=== PATIENT | female | born 1995 | race Caucasian/White ===

== ENCOUNTER 2017-06-09 23:58 | Emergency (ER) | payer OTHER ==
[~2017-06-09] VITALS: Ht 157.5 cm; Wt 74.8 kg
[~2017-06-09 23:58] MED LIST: ABILIFY15 MG; AFRIN15 ML NS; ALBUTEROL S5 MG/1 ML INH; ATROVENT HFA14 GM INH; BIRTH CONTROL PILL; CLARITIN10 M2 PO; DUONEB 2.5-0.5 M3 ML INH; KEFLEX500 M1 PO; LAMOTRIGINE PO; PREDNISONE50 MG PO; PROAIR HFA8.5 GM PO; SYNTHROID25 MC1 PO; TRILEPTAL150 MG PO
[2017-06-10 01:38] LABS: URINE BILIRUBIN NEGATIVE (Negative); URINE BLOOD NEGATIVE (Negative); URINE CLARITY CLEAR; URINE COLOR YELLOW; URINE GLUCOSE-RANDOM NEGATIVE (Negative); URINE KETONES NEGATIVE (Negative); URINE LEUKOCYTES-REFLEX NEGATIVE (Negative); URINE NITRITE-REFLEX NEGATIVE (Negative); URINE PROTEIN NEGATIVE (Negative); URINE UROBILINOGEN 0.2 E.U./dl (0.2-1.0)
[2017-06-10 02:34] VITALS: BP 117/81
[2017-06-10] MEDS ORDERED: DUONEB 2.5-0.5 M3 ML INH (02:38)
[2017-09-13] MEDS ORDERED: CITRATE OF MAG296 M1 PO
== END 2017-06-10 02:36 | disposition home or self-care (01) ==
LOC: M.ERS 23:58
PROVIDERS: Personal Emergency Response Attendant
DX: J45.901 Unspecified asthma with (acute) exacerbation (principal); E03.9 Hypothyroidism, unspecified

== ENCOUNTER 2017-07-20 00:16 | Emergency (ER) | payer OTHER ==
[~2017-07-20] VITALS: Ht 157.5 cm; Wt 74.8 kg
[2017-07-20] MEDS ORDERED: PREDNISONE50 MG PO (01:29)
[2017-07-20 01:35] VITALS: BP 116/56
[2017-09-13] MEDS ORDERED: CITRATE OF MAG296 M1 PO
== END 2017-07-20 01:36 | disposition home or self-care (01) ==
LOC: M.ERS 00:16
DX: J45.901 Unspecified asthma with (acute) exacerbation (principal); E03.9 Hypothyroidism, unspecified; Z90.89 Acquired absence of other organs; Z88.0 Allergy status to penicillin

== ENCOUNTER 2017-09-07 22:48 | Emergency (ER) | payer OTHER ==
[~2017-09-07] VITALS: Ht 160 cm; Wt 74.8 kg
[2017-09-07] MEDS ORDERED: SPIRIVA18 MCG INH (23:02)
[2017-09-07] MEDS ORDERED: TRINESSA1 EACH PO (23:02)
[2017-09-07] MEDS ORDERED: VALIUM5 MG PO (23:03)
[2017-09-07 23:14] LABS: URINE BILIRUBIN NEGATIVE (Negative); URINE BLOOD NEGATIVE (Negative); URINE CLARITY SL CLOUDY; URINE COLOR YELLOW; URINE GLUCOSE-RANDOM NEGATIVE (Negative); URINE KETONES NEGATIVE (Negative); URINE LEUKOCYTES-REFLEX TRACE (Negative); URINE NITRITE-REFLEX NEGATIVE (Negative); URINE PROTEIN NEGATIVE (Negative); URINE UROBILINOGEN 0.2 E.U./dl (0.2-1.0)
[2017-09-07 23:29] LABS: ABSOLUTE BASOPHILS 0.1 thou/uL (0.0-0.2); ABSOLUTE EOSINOPHILS 0.4 thou/uL (0.0-0.7); ABSOLUTE LYMPHOCYTES 2.4 thou/uL (0.8-5.3); ABSOLUTE MONOCYTES 0.6 thou/uL (0.0-1.2); ABSOLUTE NEUTROPHILS 3.8 thou/uL (1.6-8.1); BASOPHILS 1.3 %; HEMATOCRIT 36.8 % (37.0-47.0); HEMOGLOBIN 11.6 gm/dL (12.0-15.0); LYMPHOCYTES 33.3 %; MCH 23.8 pg (26.0-34.0); MCHC 31.6 g/dL (28.0-37.0); MCV 75.4 fL (80.0-100.0); MONOCYTES 8.1 %; MPV 8.4 fl. (7.2-11.1); NUCLEATED RBCS 0 /100WBC; PLATELET COUNT* 356 thou/uL (150-400); POLYS 52.3 %; RBC 4.88 mil/uL (4.20-5.00); RDW-CV 17.1 % (10.5-14.5); WBC 7.2 thou/uL (4.0-11.0)
[2017-09-07 23:31] LABS: AMORPHOUS URATES Moderate /LPF (None Seen); BACTERIA-REFLEX >30 Many /HPF (None Seen); CASTS None Seen /LPF (None Seen); MUCUS 4-6 Moderate strn/LPF (None Seen); SQUAMOUS 4-10 Moderate /LPF (0-3); URINE RBC 0-2 Rare /HPF (0-2); URINE WBC-REFLEX 6-15 Few /HPF (0-5)
[2017-09-07 23:41] LABS: ANION GAP 8 mmol/L (7-16); BUN 8 mg/dL (7-18); CALCIUM 8.7 mg/dL (8.5-10.1); CHLORIDE 105 mmol/L (98-107); CO2 27 mmol/L (21-32); CREATININE 0.7 mg/dL (0.6-1.3); GLUCOSE 97 mg/dL (70-99); POTASSIUM 3.8 mmol/L (3.5-5.1); SODIUM 140 mmol/L (136-145)
[2017-09-07 23:49] LABS: ALBUMIN 3.5 g/dL (3.4-5.0); ALKALINE PHOSPHATASE 96 U/L (46-116); SGOT 12 U/L (15-37); SGPT 18 U/L (30-65); TOTAL PROTEIN 7.3 g/dL (6.4-8.2)
[2017-09-07 23:51] LABS: TOTAL BILIRUBIN < 0.1 mg/dL (<0.1-1.0)
[2017-09-08] MEDS ORDERED: PHENERGAN 25 MG25 M1 PO (03:38)
[2017-09-08] MEDS ORDERED: PEPCID20 MG PO (03:38)
[2017-09-08] MEDS ORDERED: MEDROLDOSEPACK PO (03:38)
[2017-09-08] MEDS ORDERED: HYDROCODON-ACE1 EAC7 PO (03:38)
[2017-09-08 03:47] VITALS: BP 105/58
[2017-09-13] MEDS ORDERED: CITRATE OF MAG296 M1 PO
== END 2017-09-08 03:49 | disposition home or self-care (01) ==
LOC: M.ERS 22:48
PROVIDERS: Personal Emergency Response Attendant
DX: K29.80 Duodenitis without bleeding (principal); J45.909 Unspecified asthma, uncomplicated; E03.9 Hypothyroidism, unspecified; Z88.0 Allergy status to penicillin

== ENCOUNTER 2017-09-09 23:34 | Inpatient (IN) | payer OTHER ==
[~2017-09-09] VITALS: Ht 160 cm; Wt 90.7 kg
--- NOTE | ~2017-09-09 | PROC ---
[address] [address] PROCEDURE REPORT Name: BRI BELTRAN Room: [address]#: [id number] Admission: 09/10/17 Attend Phys: Ben Wiseman, Discharge: 09/12/17 Date of : 89 Report #: [id number] THIS REPORT FOR: //name// For GI report, please see the Provation report in [employer] content. By: [id number] Records Staff AMENA /AXEL
[~2017-09-09 23:34] MED LIST changes: +HYDROCODON-ACE1 EAC7 PO; +MEDROLDOSEPACK PO; +PEPCID20 MG PO; +PHENERGAN 25 MG25 M1 PO; +SPIRIVA18 MCG INH; +TRINESSA1 EACH PO; +VALIUM5 MG PO
[2017-09-09 23:40] VITALS: BP 105/54
[2017-09-10 00:11] LABS: URINE BILIRUBIN NEGATIVE (Negative); URINE BLOOD NEGATIVE (Negative); URINE CLARITY CLEAR; URINE COLOR YELLOW; URINE GLUCOSE-RANDOM NEGATIVE (Negative); URINE KETONES NEGATIVE (Negative); URINE LEUKOCYTES-REFLEX NEGATIVE (Negative); URINE NITRITE-REFLEX NEGATIVE (Negative); URINE PROTEIN NEGATIVE (Negative); URINE SPECIFIC GRAVITY 1.025 (1.005-1.030)
[2017-09-10 00:43] LABS: ABSOLUTE BASOPHILS 0.1 thou/uL (0.0-0.2); ABSOLUTE EOSINOPHILS 0.3 thou/uL (0.0-0.7); ABSOLUTE LYMPHOCYTES 1.9 thou/uL (0.8-5.3); ABSOLUTE MONOCYTES 0.7 thou/uL (0.0-1.2); ABSOLUTE NEUTROPHILS 4.9 thou/uL (1.6-8.1); BASOPHILS 1.3 %; HEMATOCRIT 34.7 % (37.0-47.0); LYMPHOCYTES 23.8 %; MCH 23.8 pg (26.0-34.0); MCHC 31.5 g/dL (28.0-37.0); MCV 75.6 fL (80.0-100.0); MONOCYTES 8.7 %; MPV 8.4 fl. (7.2-11.1); NUCLEATED RBCS 0 /100WBC; PLATELET COUNT* 329 thou/uL (150-400); POLYS 62.2 %; RDW-CV 17.4 % (10.5-14.5); WBC 7.9 thou/uL (4.0-11.0)
[2017-09-10 00:50] LABS: CALCIUM 8.3 mg/dL (8.5-10.1); CREATININE 0.7 mg/dL (0.6-1.3); POTASSIUM 3.8 mmol/L (3.5-5.1)
[2017-09-10 00:54] LABS: ALBUMIN 3.5 g/dL (3.4-5.0); TOTAL BILIRUBIN 0.2 mg/dL (<0.1-1.0)
[2017-09-10 03:00] VITALS: BP 103/62; BP 98/54
[2017-09-10 09:30] VITALS: BP 94/54
[2017-09-10 15:45] VITALS: BP 101/66
[2017-09-10 20:00] VITALS: BP 110/62
[2017-09-11 09:00] VITALS: BP 88/56
[2017-09-11 15:49] VITALS: BP 95/55
--- NOTE | 2017-09-11 17:01 | CON ---
[address] [address] CONSULTATION Name: FLIPOmkarJOHNBRI L Room: [address] [place] .R.#: [id number] Admission: 09/10/17 Attend Phys: Ben Wiseman, Discharge: Date of : 89 Report #: [id number] THIS REPORT FOR: //name// CC: KVNG Wiseman DATE OF SERVICE: 09/10/2017 REQUESTING PHYSICIAN: Dr. Ben Wiseman. REASON FOR CONSULT: Nausea, diarrhea and abdominal pain. HISTORY OF PRESENT ILLNESS: This is a 22-year-old female with history of hypothyroidism for which she has been on thyroid replacement therapy for the past 5 years. She also has depression and anxiety, but otherwise in normal health. She reports that for the past several days, she has had right upper quadrant abdominal pain, diarrhea and nausea. She denies any vomiting. The patient reports that the pain usually get worse with meals. She denies any hematochezia, melena or hematemesis. Since admission, she has had some blood work, which reveals normal white count, but mildly anemic with hemoglobin of 11. Liver function tests all within normal limits. There is evidence of urinary tract infection. She also has had CT of abdomen and pelvis, which shows normal liver, gallbladder, spleen and pancreas. There is no evidence of bowel obstruction, ascites or appendicitis. ASSESSMENT AND PLAN: The patient with nausea and right upper quadrant pain, which worsened with meals and diarrhea, which has been going on for the past several days. This may be gastroenteritis. I will obtain a HIDA scan to assure that the patient does not have any gallbladder dyskinesia. If her symptoms persist and her HIDA is negative, we will consider endoscopic evaluation. <ELECTRONICALLY SIGNED> By: Nuria Nielson MD 09/11/17 1701 [id number] [id number] Nielson MD /nt
[2017-09-11 18:06] LABS: AMP/METHAMP Negative (Negative); BARBITURATES Negative (Negative); BENZODIAZEPINES Negative (Negative); COCAINE Negative (Negative); METHADONE Negative (Negative); OPIATES Negative (Negative); PCP Negative (Negative); THC Negative (Negative)
[2017-09-11 20:45] VITALS: BP 99/60
[2017-09-11 23:55] VITALS: BP 100/63
[2017-09-12 07:55] VITALS: BP 90/55
[2017-09-12 11:30] VITALS: BP 102/65; BP 90/55
[2017-09-12 15:03] VITALS: BP 102/65
[2017-09-12 15:32] VITALS: BP 121/64
[2017-09-12] MEDS ORDERED: LAMICTAL100 MG PO (15:49)
[2017-09-12 16:01] VITALS: BP 102/65
[2017-09-12] MEDS ORDERED: OMEPRAZOLE40 MG PO (16:08)
[2017-09-12] MEDS ORDERED: BENTYL 20 MG TA20 M1 PO (16:08)
[2017-09-13] MEDS ORDERED: CITRATE OF MAG296 M1 PO
== END 2017-09-12 18:10 | disposition home or self-care (01) | DRG 392 ==
LOC: M.ERS 23:34 → M.ORTHSURG 09-10 01:47 → M.TBA-ER 09-10 01:47 → M.ORTHSURG 09-10 02:32
PROVIDERS: Emergency Medicine; Internal Medicine; ADMIT Family Medicine
PROC: 0DJ08ZZ Inspection of Upper Intestinal Tract, Via Natural or Artificial Opening Endoscopic (ICD-10-PCS; principal; 2017-09-12)
DX: K29.00 Acute gastritis without bleeding (principal); F32.9 Major depressive disorder, single episode, unspecified; F41.9 Anxiety disorder, unspecified; J30.9 Allergic rhinitis, unspecified; K44.9 Diaphragmatic hernia without obstruction or gangrene; G89.29 Other chronic pain; E03.9 Hypothyroidism, unspecified; Z79.899 Other long term (current) drug therapy; Z88.0 Allergy status to penicillin

== ENCOUNTER 2017-09-13 22:21 | Emergency (ER) | payer OTHER ==
[~2017-09-13] VITALS: Ht 160 cm; Wt 74.8 kg
[~2017-09-13 22:21] MED LIST changes: +BENTYL 20 MG TA20 M1 PO; +CITRATE OF MAG296 M1 PO; +LAMICTAL100 MG PO; +OMEPRAZOLE40 MG PO
[2017-09-13 22:48] LABS: ABSOLUTE BASOPHILS 0.1 thou/uL (0.0-0.2); ABSOLUTE EOSINOPHILS 0.2 thou/uL (0.0-0.7); ABSOLUTE LYMPHOCYTES 1.9 thou/uL (0.8-5.3); ABSOLUTE MONOCYTES 0.7 thou/uL (0.0-1.2); ABSOLUTE NEUTROPHILS 5.6 thou/uL (1.6-8.1); BASOPHILS 0.8 %; EOSINOPHILS 2.4 %; HEMATOCRIT 37.2 % (37.0-47.0); HEMOGLOBIN 11.7 gm/dL (12.0-15.0); LYMPHOCYTES 22.5 %; MCH 23.6 pg (26.0-34.0); MCHC 31.4 g/dL (28.0-37.0); MONOCYTES 8.1 %; MPV 8.5 fl. (7.2-11.1); NUCLEATED RBCS 0 /100WBC; PLATELET COUNT* 341 thou/uL (150-400); POLYS 66.2 %; RBC 4.96 mil/uL (4.20-5.00); RDW-CV 16.9 % (10.5-14.5); WBC 8.4 thou/uL (4.0-11.0)
[2017-09-13 22:53] LABS: AMP/METHAMP Negative (Negative); BARBITURATES Negative (Negative); BENZODIAZEPINES Negative (Negative); COCAINE Negative (Negative); METHADONE Negative (Negative); OPIATES Negative (Negative); PCP Negative (Negative); THC Negative (Negative)
[2017-09-13 22:59] LABS: CALCIUM 8.7 mg/dL (8.5-10.1); CREATININE 0.7 mg/dL (0.6-1.3); POTASSIUM 3.8 mmol/L (3.5-5.1)
[2017-09-13 23:03] LABS: ALBUMIN 3.7 g/dL (3.4-5.0); TOTAL BILIRUBIN 0.3 mg/dL (<0.1-1.0); TOTAL PROTEIN 7.5 g/dL (6.4-8.2)
[2017-09-14] MEDS ORDERED: ZOFRAN ODT4 MG PO (00:02)
[2017-09-14 00:14] VITALS: BP 106/56
[2017-09-14 00:22] LABS: URINE BILIRUBIN NEGATIVE (Negative); URINE BLOOD NEGATIVE (Negative); URINE CLARITY CLEAR; URINE COLOR YELLOW; URINE GLUCOSE-RANDOM NEGATIVE (Negative); URINE KETONES NEGATIVE (Negative); URINE LEUKOCYTES-REFLEX NEGATIVE (Negative); URINE NITRITE-REFLEX NEGATIVE (Negative); URINE PROTEIN NEGATIVE (Negative)
== END 2017-09-14 00:30 | disposition home or self-care (01) ==
LOC: M.ERS 22:21
PROVIDERS: Nurse Practitioner Family
DX: R10.11 Right upper quadrant pain (principal); J45.909 Unspecified asthma, uncomplicated; E03.9 Hypothyroidism, unspecified; Z88.0 Allergy status to penicillin

== ENCOUNTER 2017-10-15 21:29 | Emergency (ER) | payer OTHER ==
[~2017-10-15] VITALS: Ht 160 cm; Wt 92.1 kg
[~2017-10-15 21:29] MED LIST changes: +ZOFRAN ODT4 MG PO
[2017-10-15 22:27] VITALS: BP 106/73
== END 2017-10-15 22:27 | disposition home or self-care (01) ==
LOC: M.ERS 21:29
DX: M25.551 Pain in right hip (principal); J45.909 Unspecified asthma, uncomplicated; E03.9 Hypothyroidism, unspecified; Z88.0 Allergy status to penicillin

== ENCOUNTER 2017-12-10 21:09 | Emergency (ER) | payer OTHER ==
[~2017-12-10] VITALS: Ht 157.5 cm; Wt 81.7 kg
[2017-12-10 21:49] LABS: URINE BILIRUBIN NEGATIVE (Negative); URINE BLOOD NEGATIVE (Negative); URINE CLARITY CLEAR; URINE COLOR YELLOW; URINE GLUCOSE-RANDOM NEGATIVE (Negative); URINE KETONES NEGATIVE (Negative); URINE LEUKOCYTES-REFLEX TRACE (Negative); URINE NITRITE-REFLEX NEGATIVE (Negative); URINE PROTEIN NEGATIVE (Negative); URINE SPECIFIC GRAVITY 1.025 (1.005-1.030); URINE UROBILINOGEN 0.2 E.U./dl (0.2-1.0)
[2017-12-10 21:56] LABS: BACTERIA-REFLEX 1-9 Few /HPF (None Seen); CASTS None Seen /LPF (None Seen); CRYSTALS None Seen /LPF (None Seen); SQUAMOUS >10 Many /LPF (0-3); URINE RBC None Seen /HPF (0-2); URINE WBC-REFLEX 0-5 Rare /HPF (0-5)
[2017-12-10 21:57] LABS: MUCUS 0-3 Light strn/LPF (None Seen)
[2017-12-10 21:59] LABS: ABSOLUTE BASOPHILS 0.1 thou/uL (0.0-0.2); ABSOLUTE EOSINOPHILS 0.4 thou/uL (0.0-0.7); ABSOLUTE LYMPHOCYTES 2.6 thou/uL (0.8-5.3); ABSOLUTE MONOCYTES 0.9 thou/uL (0.0-1.2); ABSOLUTE NEUTROPHILS 7.8 thou/uL (1.6-8.1); BASOPHILS 1.2 %; HEMATOCRIT 37.6 % (37.0-47.0); HEMOGLOBIN 11.7 gm/dL (12.0-15.0); LYMPHOCYTES 22.1 %; MCHC 31.2 g/dL (28.0-37.0); MCV 77.2 fL (80.0-100.0); MONOCYTES 7.6 %; MPV 8.5 fl. (7.2-11.1); NUCLEATED RBCS 0 /100WBC; PLATELET COUNT* 363 thou/uL (150-400); POLYS 66.1 %; RBC 4.87 mil/uL (4.20-5.00); RDW-CV 16.3 % (10.5-14.5); WBC 11.8 thou/uL (4.0-11.0)
[2017-12-10 22:15] LABS: CALCIUM 8.3 mg/dL (8.5-10.1); CREATININE 0.8 mg/dL (0.6-1.3); POTASSIUM 3.5 mmol/L (3.5-5.1)
[2017-12-10 22:20] LABS: ALBUMIN 3.8 g/dL (3.4-5.0); TOTAL BILIRUBIN 0.2 mg/dL (<0.1-1.0); TOTAL PROTEIN 7.7 g/dL (6.4-8.2)
[2017-12-10] MEDS ORDERED: ZOFRAN ODT4 MG PO (23:51)
[2017-12-10] MEDS ORDERED: BACTRIM DS TAB1 EACH PO (23:51)
[2017-12-11 00:03] VITALS: BP 112/66
== END 2017-12-11 00:04 | disposition home or self-care (01) ==
LOC: M.ERS 21:09
PROVIDERS: Nurse Practitioner Family; Personal Emergency Response Attendant
DX: N39.0 Urinary tract infection, site not specified (principal); K59.00 Constipation, unspecified; J45.909 Unspecified asthma, uncomplicated; E03.9 Hypothyroidism, unspecified; Z88.0 Allergy status to penicillin